=== PATIENT | female | born 1985 | race Caucasian/White ===

== ENCOUNTER 2016-09-07 18:41 | Emergency (ER) | payer OTHER ==
--- NOTE | ~2016-09-07 | CT4 ---
[facility] A Service of [facility] & [facility] RADIOLOGY TEXT RESULTS PATIENT: JOE BARTHOLOMEW LOCATION: CFTX : [birth year] UNIT #: [id number] AGE: [address]: ROBBIE BLANCHARD APRN SEX: F ORDER DR: [id number] [facility] [address] [place], [place] [address] [id number] E MR#: [id number] Acc #: [id number] NAME: JOE BARTHOLOMEW : 1985 SEX: F STUDY DATE/TIME: 09/07/2016 19:35 UNIT: CFTX ROOM: STUDY DESCRIPTION: CT Abd and Pelv Wo Cont Attending Physician: Robbie Blanchard Aprn Ordering Physician: Ed Doctor [id number] [facility] Primary Care Physician: Rudi Thornton M.D. MEDICAL IMAGING REPORT This report is preliminary unless electronic signature is present EXAM CT abdomen and pelvis 09/07/16 INDICATIONS Pelvic pain and dysuria for the last 2 days. History of kidney stones. TECHNIQUE Axial noncontrast images were obtained through the abdomen and pelvis. Multiplanar reformats were obtained. Comparison made with 10/27/2015. This CT exam was performed with one or more of the following radiation dose reduction techniques: automatic exposure control, adjustment of mA and/or kV according to patient size, and iterative reconstruction. FINDINGS Abdomen: Lung bases are clear. The gallbladder is surgically absent. There is no biliary obstruction. There are multiple small bilateral nonobstructing kidney stones. No ureteral stones are seen, and there is no hydronephrosis. Solid organs are otherwise unremarkable. The unopacified GI tract is normal. Pelvis: There are no lower ureteral stones. The bladder is normal. Solid pelvic organs are within normal limits. The appendix is normal. The remainder of the unopacified GI tract is normal as well. There are bilateral L4 pars defects. No malalignment is seen. IMPRESSION 1. No acute findings in the abdomen or pelvis. 2. Bilateral nonobstructing renal stones. No ureteral stones are seen on either side, there is no hydronephrosis. 3. Normal unopacified GI tract including the appendix. [facility] A Service of [facility] & [facility] RADIOLOGY TEXT RESULTS PATIENT: JOE BARTHOLOMEW LOCATION: [facility] : [birth year] UNIT #: [id number] AGE: [address]: ROBBIE BLANCHARD APRN SEX: F ORDER DR: 4. Cholecystectomy. Dictated by... Audi Hogan Jr., M.D. THIS IS AN ELECTRONICALLY VERIFIED REPORT Audi Hogan Jr., M.D. at 09/08/2016 8:00 AM BRADY/ron TD: 09/07/2016 22:22 JOB #: [id number] MEDICAL IMAGING REPORT Page 1 of 1 COPY
[2016-09-07 18:01] LABS: URINE SOURCE CLEAN CATCH
[2016-09-07 18:07] LABS: URINE APPEARANCE CLEAR; URINE BILIRUBIN NEG (NEG); URINE BLOOD TRACE (NEG); URINE COLOR YELLOW; URINE GLUCOSE NEG (NEG); URINE KETONE NEG (NEG); URINE LEUKOCYTE ESTERASE NEG (NEG); URINE NITRATE NEG (NEG); URINE PROTEIN NEG (NEG); URINE SPECIFIC GRAVITY 1.021 (1.003-1.035); URINE UROBILINOGEN 0.2 MG/DL (NEG)
[2016-09-07 18:08] LABS: URINE BACTERIA AUWI NEG (NEGATIVE); URINE SQUAMOUS EPITHELIAL CELL OCC /[HPF]
[2016-09-07 18:11] LABS: CULTURE INDICATED? NO
[~2016-09-07 18:41] MED LIST: ABILIFY; ABILIFY PO; ALBUTEROL 0.5ML INH; ALBUTEROL17 GM; ALBUTEROL17 GM IH; ALBUTEROL17 GM INH; AMOXICILLIN PO; ANAPHYLACTIC KI1 KIT IM; ANTI INFLAMMATORY; ANTIDEPRESSANT PO; ASMANEX; ASTHMANEX IH; AURALGAN EAR DR14 ML OT; BACTRIM DS TABL1 TA1 PO; BENTYL20 MG PO; BENZONATATE PO; BUDEPRION XL150 MG; CALAN80 MG PO; CIPRO PO; COMBIVENT U/D3 M2 INH; CORTISPORI10 ML SUSP AD; CORTISPORIN-TC10 ML OT; DARVOCET-N 1001 TA1 PO; DARVOCET-N 1001 TAB PO; DICLOFENAC PO; DIFLUCAN PO; DOXYCYCLINE MO100 MG PO; DULERA 100 MCG/13 GM INH; ESCITALOPRAM OX20 MG DOB; EXCEDRIN GELTAB1 TA1; FANAPT6 MG PO; FERRO-TIME325 MG PO; FERROUS SULFATE1 TAB PO; FLAGYL PO; FLEXERIL PO; FLEXERIL10 M1 PO; FLEXERIL10 MG PO; FLOMAX0.4 M1 PO; FLONASE 0.05% N16 G1; FLONASE16 GM; FORADIL12 MCG NEB; GABAPENTIN300 M2 PO; GEODAN PO; HEADACHE MEDICATION; HYCODAN60 ML 5MG/ PO; HYDROXYZINE HCL25 M1 PO; IBUPROFEN PO; IBUPROFEN800 MG PO; IMITREX25 MG PO; K-DUR10 MEQ PO; LAMICTAL; LAMICTAL PO; LAMICTAL100 MG PO; LAMICTAL150 MG PO; LAMICTAL25 MG PO; LAMOTRIGINE100 MG PO; LATUDA20 MG PO; LEXAPRO; LEXAPRO PO; LEXAPRO20 MG PO; LIDOCAINE VISCOU1 ML EXT; LORTAB 10-5001 EACH PO; LORTAB 5-325 M1 EACH PO; LORTAB 5/500 TA1 TA1 PO; LORTAB 7.5-5001 TAB PO; LORTAB 7.51 TAB 7.5/ PO; MACROBID 100 M100 MG PO; MAGNESIUM500 MG PO; MEDROL PO; MELATONIN1 MG DOB; MELATONIN1 MG PO; MELOXICAM15 MG PO; MINIPRESS1 MG; MOBIC15 MG PO; MOTRIN400 MG PO; MUCINEX D ER T1 EACH PO; MUCINEX DM ER1 EACH PO; MUCINEX DM1 TAB.SR . PO; MUCINEX1200 MG/BO PO; NAPROSYN500 MG PO; NAPROXEN; NAPROXEN PO; NASONEX17 GM; NEURONTIN; NEXPLANON68 MG SQ; OLANZAPINE20 MG PO; OMEPRAZOLE20 M2 PO; ORUDIS75 M1 DOB; PERCOCET PO; PHENERGAN12.5 MG/SU PR; PHENERGAN25 M1 PO; PHENERGAN25 MG PO; PRAZOSIN HCL2 MG PO; PREDNISONE PO; PRENATAL1 TA1 PO; PRILOSEC20 M1; PRILOSEC20 MG PO; PROMETHAZINE DM PO; PROTONIX; PROTONIX PO; SINGULAIR; SINGULAIR PO; SYMBICORT INH; TESSALON PERLES PO; TIZANIDINE HCL2 M1; TOPAMAX PO; TRAMADOL HCL50 M1 PO; TRIAMCINOLONE A15 G2 TOP; TYLENOL #3 PO; ULTRAM PO; VICODIN 5/500 T1 TAB PO; VICODIN PO; VISTARIL; VISTARIL50 MG PO; VITAMIN B; VOLTAREN PO; VOLTAREN50 MG PO; VOLTAREN75 MG PO; ZITHROMAX PO; ZITHROMAX1 G/PKT PO; ZOFRAN ODT4 MG PO; ZOFRAN ODT4 MG SL; ZOFRAN ODT4 MG/UDTAB PO; ZOFRAN PO; ZOLOFT PO; ZOLOFT100 MG PO; ZOLOFT50 MG PO; ZYRTEC; ZYRTEC PO; ZYRTEC10 M1 PO; ZYRTEC10 M2 PO
[2016-09-07 18:49] LABS: BASOPHIL# 0.1 X10e3 (0-0.3); BASOPHIL% 1.1 % (0-2.5); EOSINOPHIL# 0.2 X10e3 (0-0.7); EOSINOPHIL% 1.9 % (0.0-7.0); HEMATOCRIT 40.5 % (35.0-45.0); HEMOGLOBIN 13.2 gm/dL (12.0-16.0); LYMPHOCYTE# 3.6 X10e3 (1.0-3.5); LYMPHOCYTE% 30.1 % (17.0-45.0); MEAN CELL VOLUME 90.1 FL (83-96); MEAN CORPUSCULAR HEMOGLOBIN 29.3 PG (28-34); MEAN CORPUSCULAR HGB CONC 32.5 g/dL (30-36); MEAN PLATELET VOLUME 8.5 FL (6.5-11.5); MONOCYTE# 0.8 X10e3 (0-1.0); MONOCYTE% 6.8 % (3.0-12.0); NEUTROPHIL# 7.2 X10e3 (1.5-7.1); NEUTROPHIL% 60.1 % (40-75); PLATELET COUNT 272 X10e3 (140-420); RED BLOOD COUNT 4.49 X10e (3.90-5.30); RED CELL DISTRIBUTION WIDTH 14.5 % (11.0-15.5); WHITE BLOOD COUNT 11.9 X10e3 (4.0-10.5)
[2016-09-07 18:53] LABS: DIFF IND NO
[2016-09-07 19:15] LABS: ALBUMIN SERUM 3.7 g/dL (3.5-5.0); BILIRUBIN,TOTAL 0.5 mg/dL (0.2-2.0); CALCIUM SERUM 9.1 mg/dL (8.4-10.2); CREATININE SERUM 0.8 mg/dL (0.6-1.4); GLOM FILT RATE Estimated 99.7 mL/min (>60); POTASSIUM 3.8 mmol/L (3.5-5.1); PROTEIN TOTAL SERUM 7.2 g/dL (6.0-8.3)
[2016-09-10 14:44] LABS: CHLAMYDIA TRACH Not Detected (Not Detected); N GONOR Not Detected (Not Detected)
[2016-09-13] MEDS ORDERED: ZYPREXA (17:47)
[2016-09-13] MEDS ORDERED: PRILOSEC (17:48)
[2016-09-13] MEDS ORDERED: PROZAC10 M1 PO (17:48)
[2016-09-13] MEDS ORDERED: MINIPRESS (17:48)
[2016-09-13] MEDS ORDERED: LAMICTAL (17:48)
[2016-09-13] MEDS ORDERED: NEURONTIN100 MG (17:49)
[2016-09-13] MEDS ORDERED: SINGULAIR (17:49)
[2016-09-13] MEDS ORDERED: ALBUTEROL17 GM (17:49)
[2016-09-13] MEDS ORDERED: CALAN (17:49)
[2016-09-13] MEDS ORDERED: NAPROXEN (17:49)
[2016-09-13] MEDS ORDERED: ZYRTEC (17:49)
== END 2016-09-07 21:02 | disposition home or self-care (01) ==
LOC: CFTX 18:41
PROVIDERS: Nurse Practitioner
DX: N20.0 Calculus of kidney (principal); F41.9 Anxiety disorder, unspecified; F32.9 Major depressive disorder, single episode, unspecified; K21.9 Gastro-esophageal reflux disease without esophagitis; F17.210 Nicotine dependence, cigarettes, uncomplicated; Z90.49 Acquired absence of other specified parts of digestive tract; Z87.442 Personal history of urinary calculi
CPT/HCPCS: 36415; 74176; 80053; 81003; 84703; 85025; 87491; 87591; 87808; 87905; 96372; 99284; J1885

== ENCOUNTER 2016-09-13 18:13 | Emergency (ER) | payer OTHER ==
--- NOTE | ~2016-09-13 | CT2 ---
[facility] A Service of [facility] RADIOLOGY TEXT RESULTS PATIENT: JOE BARTHOLOMEW LOCATION: SED : 86 UNIT #: [id number] AGE: [address]: Evangelista Morales MD SEX: F ORDER DR: [id number] [address] [address] [id number] E MR#: [id number] Acc #: [id number] NAME: JOE BARTHOLOMEW : 1985 SEX: F STUDY DATE/TIME: 09/13/2016 20:28 UNIT: SED ROOM: STUDY DESCRIPTION: CT Abd and Pelv W Cont Attending Physician: Evangelista Morales M.D. Ordering Physician: Alberto Eric M.D. Primary Care Physician: Rudi Thornton M.D. MEDICAL IMAGING REPORT This report is preliminary unless electronic signature is present. EXAM CT abdomen and pelvis with contrast INDICATIONS Left flank pain for the past week. PROCEDURE Contrast-enhanced CT abdomen and pelvis 100 mL Isovue-370. This CT exam was performed with one or more of the following radiation dose reduction techniques: automatic exposure control, adjustment of mA and/or kV according to patient size, and iterative reconstruction. COMPARISON 09/07/2016 FINDINGS Abdomen with contrast: Included lung bases clear. Liver, spleen, adrenal glands, pancreas show no acute abnormality. Previous cholecystectomy. The bowel loops are nondilated. Appendix is normal. There are small nonobstructing calculi in both kidneys. No renal inflammatory change or hydronephrosis. No radiodense ureteral calculus. Pelvis with contrast: No pelvic mass or fluid. No aggressive appearing bone lesion. IMPRESSION 1. Bilateral nonobstructing renal calculi. No CT evidence for renal inflammation. There is no radiodense ureteral calculus or hydronephrosis. 2. Appendix is normal. [facility] A Service of [facility] RADIOLOGY TEXT RESULTS PATIENT: JOE BARTHOLOMEW LOCATION: SED : 86 UNIT #: [id number] AGE: [address]: Evangelista Morales MD SEX: F ORDER DR: Dictated by... Sharath Jain M.D. THIS IS AN ELECTRONICALLY VERIFIED REPORT Sharath Jain M.D. at 09/17/2016 7:05 AM Alejandra TD: 09/14/2016 08:33 JOB #: [id number] MEDICAL IMAGING REPORT Page 1 of 1
[~2016-09-13 18:13] MED LIST changes: +CALAN; +MINIPRESS; +NEURONTIN100 MG; +PRILOSEC; +PROZAC10 M1 PO; +ZYPREXA
[2016-09-13 18:34] LABS: URINE SOURCE CLEAN CATCH
[2016-09-13 18:36] LABS: URINE APPEARANCE CLEAR; URINE BILIRUBIN NEG (NEG); URINE BLOOD NEG (NEG); URINE COLOR YELLOW; URINE GLUCOSE NEG (NORM); URINE KETONE NEG (NEG); URINE LEUKOCYTE ESTERASE NEG (NEG); URINE NITRATE NEG (NEG); URINE PROTEIN NEG (NEG); URINE SPECIFIC GRAVITY 1.015 (1.003-1.035); URINE UROBILINOGEN 0.2 MG/DL (NORM)
[2016-09-13 18:37] LABS: BASOPHIL# 0.2 X10e3 (0-0.3); BASOPHIL% 1.2 % (0-2.5); EOSINOPHIL# 0.2 X10e3 (0-0.7); EOSINOPHIL% 1.2 % (0.0-7.0); HEMATOCRIT 36.9 % (35.0-45.0); HEMOGLOBIN 12.4 gm/dL (12.0-16.0); LYMPHOCYTE# 3.4 X10e3 (1.0-3.5); LYMPHOCYTE% 20.9 % (17.0-45.0); MEAN CELL VOLUME 89.2 FL (83-96); MEAN CORPUSCULAR HEMOGLOBIN 30.1 PG (28-34); MEAN CORPUSCULAR HGB CONC 33.7 g/dL (30-36); MEAN PLATELET VOLUME 8.2 FL (6.5-11.5); MONOCYTE# 0.9 X10e3 (0-1.0); MONOCYTE% 5.3 % (3.0-12.0); NEUTROPHIL# 11.6 X10e3 (1.5-7.1); NEUTROPHIL% 71.4 % (40-75); PLATELET COUNT 267 X10e3 (140-420); RED BLOOD COUNT 4.14 X10e (3.90-5.30); RED CELL DISTRIBUTION WIDTH 14.6 % (11.0-15.5); WHITE BLOOD COUNT 16.2 X10e3 (4.0-10.5)
[2016-09-13 18:38] LABS: MICRO INDICATED? NO
[2016-09-13 18:39] LABS: DIFF IND NO
[2016-09-13 19:01] LABS: ALBUMIN SERUM 3.5 g/dL (3.5-5.0); BILIRUBIN, DIRECT 0.1 mg/dL (0.0-0.2); BILIRUBIN,INDIRECT 0.2 mg/dL (0.0-0.9); BILIRUBIN,TOTAL 0.3 mg/dL (0.2-2.0); BUN/CREATININE RATIO 13.33; CALCIUM SERUM 9.2 mg/dL (8.4-10.2); CREATININE SERUM 1.2 mg/dL (0.6-1.4); POTASSIUM 4.3 mmol/L (3.5-5.1)
== END 2016-09-13 21:07 | disposition home or self-care (01) ==
LOC: SED 18:13
PROVIDERS: Emergency Medicine
DX: A54.03 Gonococcal cervicitis, unspecified (principal); N39.0 Urinary tract infection, site not specified; I10 Essential (primary) hypertension; J45.909 Unspecified asthma, uncomplicated; Z88.8 Allergy status to other drugs, medicaments and biological substances
CPT/HCPCS: 36415; 74177; 80048; 80076; 81003; 82150; 83690; 84703; 85025; 96374; 96375; 99284; J1885; J2405; Q9967

== ENCOUNTER 2016-11-26 16:12 | Emergency (ER) | payer OTHER ==
[2016-11-26 16:51] LABS: URINE SOURCE CLEAN CATCH
[2016-11-26 16:53] LABS: URINE APPEARANCE CLEAR; URINE BILIRUBIN NEG (NEG); URINE BLOOD 3+ (NEG); URINE COLOR YELLOW; URINE GLUCOSE NEG (NORM); URINE KETONE NEG (NEG); URINE LEUKOCYTE ESTERASE NEG (NEG); URINE NITRATE NEG (NEG); URINE PROTEIN NEG (NEG); URINE SPECIFIC GRAVITY <=1.005 (1.003-1.035); URINE UROBILINOGEN 0.2 MG/DL (NORM)
[2016-11-26 17:02] LABS: MICRO INDICATED? YES
[2016-11-26 17:08] LABS: CULTURE INDICATED? NO; URINE BACTERIA NEG (NEG); URINE WBC 0-2 /[HPF] (0-5)
== END 2016-11-26 17:43 | disposition home or self-care (01) ==
LOC: SED 16:12
PROVIDERS: Physician Assistant
DX: R30.0 Dysuria (principal); J45.909 Unspecified asthma, uncomplicated; K21.9 Gastro-esophageal reflux disease without esophagitis; Z90.49 Acquired absence of other specified parts of digestive tract; F17.210 Nicotine dependence, cigarettes, uncomplicated; Z88.8 Allergy status to other drugs, medicaments and biological substances; Z91.018 Allergy to other foods
CPT/HCPCS: 81003; 84703; 99283

== ENCOUNTER 2016-12-02 19:43 | Emergency (ER) | payer OTHER ==
[~2016-12-02] VITALS: Ht 149.9 cm; Wt 94.8 kg
--- NOTE | ~2016-12-02 | CT4 ---
[facility] A Service [facility] RADIOLOGY TEXT RESULTS PATIENT: JOE BARTHOLOMEW LOCATION: SED : 86 UNIT #: [id number] AGE: [address]: JEAN GARCIA SEX: F ORDER DR: [id number] [address] [address] [id number] E MR#: [id number] Acc #: [id number] NAME: JOE BARTHOLOMEW : 1985 SEX: F STUDY DATE/TIME: 12/02/2016 20:52 UNIT: SED ROOM: STUDY DESCRIPTION: CT Abd and Pelv Wo Cont Attending Physician: Jean Garcia Ordering Physician: Jean Garcia Primary Care Physician: Rudi Thornton M.D. MEDICAL IMAGING REPORT This report is preliminary unless electronic signature is present. EXAM CT scan of the abdomen and pelvis without contrast, 12/02/2016 HISTORY Diffuse abdominal pain after urination for [address] was performed through the abdomen and pelvis without oral or intravenous contrast administration as per clinician request. This CT exam was performed with one or more of the following radiation dose reduction techniques: automatic exposure control, adjustment of mA and/or kV according to patient size, and iterative reconstruction. FINDINGS ABDOMEN: Exam is limited by the lack of oral and intravenous contrast. The liver, spleen, pancreas, and adrenal glands are normal. The gallbladder is surgically absent. There are nonobstructing renal stones bilaterally. PELVIS FINDINGS: The gut, mesenteric and karena structures are normal. There is no free fluid in the abdomen or pelvis. The lung bases are normal. Impression 1. The exam is limited by the lack of oral and intravenous contrast. 2. Surgical absence of the gallbladder. 3. Nonobstructing renal stones bilaterally. Dictated by... [facility] A Service [facility] RADIOLOGY TEXT RESULTS PATIENT: JOE BARTHOLOMEW LOCATION: SED : 86 UNIT #: [id number] AGE: [address]: JEAN GARCIA SEX: F ORDER DR: Sang Jansen M.D. THIS IS AN ELECTRONICALLY VERIFIED REPORT Sang Jansen M.D. at 12/03/2016 2:09 PM ROSHNI/darlene TD: 12/03/2016 00:03 JOB #: [id number] MEDICAL IMAGING REPORT Page 1 of 1
[2016-12-02 20:35] LABS: URINE SOURCE CLEAN CATCH
[2016-12-02 20:36] LABS: BASOPHIL# 0.2 X10e3 (0-0.3); BASOPHIL% 1.6 % (0-2.5); EOSINOPHIL# 0.2 X10e3 (0-0.7); EOSINOPHIL% 1.8 % (0.0-7.0); HEMATOCRIT 41.8 % (35.0-45.0); LYMPHOCYTE# 3.3 X10e3 (1.0-3.5); LYMPHOCYTE% 28.2 % (17.0-45.0); MEAN CELL VOLUME 87.8 FL (83-96); MEAN CORPUSCULAR HEMOGLOBIN 29.4 PG (28-34); MEAN CORPUSCULAR HGB CONC 33.5 g/dL (30-36); MONOCYTE# 0.6 X10e3 (0-1.0); MONOCYTE% 5.4 % (3.0-12.0); NEUTROPHIL# 7.3 X10e3 (1.5-7.1); PLATELET COUNT 282 X10e3 (140-420); RED BLOOD COUNT 4.76 X10e (3.90-5.30); RED CELL DISTRIBUTION WIDTH 13.9 % (11.0-15.5); WHITE BLOOD COUNT 11.6 X10e3 (4.0-10.5)
[2016-12-02 20:37] LABS: DIFF IND NO; MICRO INDICATED? YES; URINE APPEARANCE CLEAR; URINE BILIRUBIN NEG (NEG); URINE BLOOD TRACE-INTACT (NEG); URINE COLOR YELLOW; URINE GLUCOSE NEG (NORM); URINE KETONE NEG (NEG); URINE LEUKOCYTE ESTERASE NEG (NEG); URINE NITRATE NEG (NEG); URINE PROTEIN NEG (NEG); URINE SPECIFIC GRAVITY <=1.005 (1.003-1.035); URINE UROBILINOGEN 0.2 MG/DL (NORM)
[2016-12-02 20:48] LABS: CULTURE INDICATED? NO; URINE BACTERIA NEG (NEG); URINE RBC 0-2 /[HPF] (0-2); URINE SQUAMOUS EPITHELIAL CELL FEW /[HPF]; URINE WBC NEG /[HPF] (0-5)
[2016-12-02 20:53] LABS: ALBUMIN SERUM 4.2 g/dL (3.5-5.0); BILIRUBIN,TOTAL 0.6 mg/dL (0.2-2.0); CALCIUM SERUM 9.4 mg/dL (8.4-10.2); GLOM FILT RATE Estimated 76.1 mL/min (>60); POTASSIUM 3.7 mmol/L (3.5-5.1); PROTEIN TOTAL SERUM 8.2 g/dL (6.0-8.3)
[2016-12-05 10:53] LABS: CHLAMYDIA TRACH Not Detected (Not Detected); N GONOR Not Detected (Not Detected)
== END 2016-12-03 00:17 | disposition home or self-care (01) ==
LOC: SED 19:43
PROVIDERS: Nurse Practitioner
DX: N20.0 Calculus of kidney (principal); F41.9 Anxiety disorder, unspecified; F31.9 Bipolar disorder, unspecified; F17.200 Nicotine dependence, unspecified, uncomplicated; Z88.8 Allergy status to other drugs, medicaments and biological substances; Z91.018 Allergy to other foods
CPT/HCPCS: 36415; 74176; 80053; 81003; 84703; 85025; 87210; 87491; 87591; 87808; 87905; 96361; 96374; 96375; 99284; J1885; J2405

== ENCOUNTER 2016-12-11 20:32 | Emergency (ER) | payer OTHER ==
[~2016-12-11] VITALS: Ht 149.9 cm; Wt 94.8 kg
--- NOTE | ~2016-12-11 | CR63 ---
[facility] A Service [facility] RADIOLOGY TEXT RESULTS PATIENT: JOE BARTHOLOMEW LOCATION: SED : 86 UNIT #: [id number] AGE: [address]: Barbara Melendrez SEX: F ORDER DR: [id number] [address] [address] [id number] E MR#: [id number] Acc #: [id number] NAME: JOE BARTHOLOMEW : 1985 SEX: F STUDY DATE/TIME: 12/11/2016 23:39 UNIT: SED ROOM: STUDY DESCRIPTION: CR Chest 2 View Attending Physician: Barbara Melendrez Pa-C Ordering Physician: Physician Non-Staff Primary Care Physician: Rudi Thornton M.D. MEDICAL IMAGING REPORT This report is preliminary unless electronic signature is present. EXAM Chest 2 views HISTORY 30-year-old female in the ED complaining of 1-month history of cough, congestion and fever. TECHNIQUE PA and lateral upright chest series. FINDINGS The exam shows diffuse, predominantly interstitial opacity throughout both lungs, not present on the previous study of 12/02/2015. Heart size is normal. The findings may represent diffuse pneumonitis. Cardiogenic or noncardiogenic pulmonary edema is also possible. There is no airspace consolidation, pneumothorax or pleural effusion. IMPRESSION 1. Vvky-lj-vmktofqs diffuse interstitial opacity may represent pneumonitis as well as pulmonary edema, correlate clinically. 2. Heart size normal. No pleural effusion. Dictated by... Momo Weiss M.D. THIS IS AN ELECTRONICALLY VERIFIED REPORT Momo Weiss M.D. at 12/12/2016 5:59 AM MOSES/[place] TD: 12/12/2016 04:09 [facility] A Service [facility] RADIOLOGY TEXT RESULTS PATIENT: JOE BARTHOLOMEW LOCATION: SED : [birth year] UNIT #: [id number] AGE: [address]: Barbara Melendrez SEX: F ORDER DR: JOB #: [id number] MEDICAL IMAGING REPORT Page 1 of 1
--- NOTE | ~2016-12-11 | CR127 ---
[facility]. [facility] A Service of [facility] & [facility] RADIOLOGY TEXT RESULTS PATIENT: JOE BARTHOLOMEW LOCATION: SED : 86 UNIT #: [id number] AGE: [address]: Barbara Melendrez SEX: F ORDER DR: [id number] [place] [id number] E MR#: [id number] Acc #: [id number] NAME: JOE BARTHOLOMEW : 1985 SEX: F STUDY DATE/TIME: 12/11/2016 21:22 UNIT: SED ROOM: STUDY DESCRIPTION: CR Foot Complete Min 3 View Rt Attending Physician: Barbara Melendrez Pa-C Ordering Physician: Staff Doctor Not On Primary Care Physician: Rudi Thornton M.D. MEDICAL IMAGING REPORT This report is preliminary unless electronic signature is present. EXAM Right foot 12/11 21:22 INDICATIONS Foot pain and swelling after twisting injury and fall today. FINDINGS The tarsal, metatarsal, and phalangeal elements are all anatomically normal in position and alignment. There are no articular defects. No fractures or radiopaque foreign bodies in the soft tissues are apparent. IMPRESSION Normal foot. Dictated by... Audi Hogan Jr., M.D. THIS IS AN ELECTRONICALLY VERIFIED REPORT Audi Hogan Jr., M.D. at 12/12/2016 4:13 PM BRADY/susy TD: 12/12/2016 01:59 JOB #: [id number] MEDICAL IMAGING REPORT Page 1 of 1
--- NOTE | ~2016-12-11 | CR72 ---
[facility] A Service of [facility] & [facility] RADIOLOGY TEXT RESULTS PATIENT: JOE BARTHOLOMEW LOCATION: SED : 86 UNIT #: [id number] AGE: [address]: Barbara Melendrez SEX: F ORDER DR: [id number] [address] [address] [id number] E MR#: [id number] Acc #: [id number] NAME: JOE BARTHOLOMEW : 1985 SEX: F STUDY DATE/TIME: 12/11/2016 22:36 UNIT: SED ROOM: STUDY DESCRIPTION: CR Chest Single View Portable Attending Physician: Barbara Melendrez Pa-C Ordering Physician: Fabio Looney M.D. Primary Care Physician: Rudi Thornton M.D. MEDICAL IMAGING REPORT This report is preliminary unless electronic signature is present. EXAM Chest x-ray 12/11/2016 HISTORY 30-year-old female in the ED complaining of 1-month history of cough, congestion and fever. TECHNIQUE AP portable chest x-ray. FINDINGS The examination is nondiagnostic secondary to radiographic underexposure and patient lordotic positioning, exaggerated by patient body habitus. A repeat study is recommended, preferably an upright PA and lateral examination. Heart size is normal. No visible pneumothorax or pleural effusion. Lungs cannot be assessed on this image. Dictated by... Momo Weiss M.D. THIS IS AN ELECTRONICALLY VERIFIED REPORT Momo Weiss M.D. at 12/12/2016 5:58 AM MOSES/[place] TD: 12/12/2016 03:45 JOB #: [id number] MEDICAL IMAGING REPORT Page 1 of 1
--- NOTE | ~2016-12-11 | CR21 ---
[facility]. [facility] A Service of [facility] & [facility] RADIOLOGY TEXT RESULTS PATIENT: JOE BARTHOLOMEW LOCATION: SED : 86 UNIT #: [id number] AGE: [address]: Barbara Melendrez SEX: F ORDER DR: [id number] [place] [id number] E MR#: [id number] Acc #: [id number] NAME: JOE BARTHOLOMEW : 1985 SEX: F STUDY DATE/TIME: 12/11/2016 21:22 UNIT: SED ROOM: STUDY DESCRIPTION: CR Ankle Min 3 Views Rt Attending Physician: Barbara Melendrez Pa-C Ordering Physician: Staff Doctor Not On Primary Care Physician: Rudi Thornton M.D. MEDICAL IMAGING REPORT This report is preliminary unless electronic signature is present. EXAM Right ankle 12/11 21:22 INDICATIONS Ankle pain and swelling after twisting and falling today. COMPARISON 01/10/2016. FINDINGS AP, lateral, and oblique projections of the ankle show satisfactory integrity of the joint mortise with a smooth articular surface. There is no identifiable fracture, dislocation, or radiopaque foreign body. IMPRESSION Normal ankle. Dictated by... Audi Hogan Jr., M.D. THIS IS AN ELECTRONICALLY VERIFIED REPORT Audi Hogan Jr., M.D. at 12/12/2016 4:13 PM BRADY/susy TD: 12/12/2016 01:57 JOB #: [id number] MEDICAL IMAGING REPORT Page 1 of 1
[2016-12-12 00:57] LABS: BASOPHIL# 0.1 X10e3 (0-0.3); BASOPHIL% 0.3 % (0-2.5); EOSINOPHIL% 0.2 % (0.0-7.0); HEMATOCRIT 39.2 % (35.0-45.0); HEMOGLOBIN 13.2 gm/dL (12.0-16.0); LYMPHOCYTE# 2.3 X10e3 (1.0-3.5); LYMPHOCYTE% 10.9 % (17.0-45.0); MEAN CELL VOLUME 88.2 FL (83-96); MEAN CORPUSCULAR HEMOGLOBIN 29.7 PG (28-34); MEAN CORPUSCULAR HGB CONC 33.6 g/dL (30-36); MEAN PLATELET VOLUME 8.4 FL (6.5-11.5); MONOCYTE# 0.8 X10e3 (0-1.0); MONOCYTE% 3.8 % (3.0-12.0); NEUTROPHIL# 17.8 X10e3 (1.5-7.1); NEUTROPHIL% 84.8 % (40-75); PLATELET COUNT 271 X10e3 (140-420); RED BLOOD COUNT 4.45 X10e (3.90-5.30); RED CELL DISTRIBUTION WIDTH 13.9 % (11.0-15.5)
[2016-12-12 00:59] LABS: DIFF IND YES
[2016-12-12 01:15] LABS: ALBUMIN SERUM 3.7 g/dL (3.5-5.0); BILIRUBIN,TOTAL 0.6 mg/dL (0.2-2.0); BUN/CREATININE RATIO 11.81; CALCIUM SERUM 8.9 mg/dL (8.4-10.2); CREATININE SERUM 1.1 mg/dL (0.6-1.4); GLOM FILT RATE Estimated 67.8 mL/min (>60); POTASSIUM 3.6 mmol/L (3.5-5.1); PROTEIN TOTAL SERUM 7.6 g/dL (6.0-8.3)
[2016-12-12 01:26] LABS: ANISOCYTOSIS SL; PLATELET ESTIMATE NORMAL (NORMAL); POIKILOCYTOSIS SL
== END 2016-12-12 03:35 ==
LOC: SED 20:32
PROVIDERS: Physician Assistant
DX: J18.9 Pneumonia, unspecified organism (principal); F17.200 Nicotine dependence, unspecified, uncomplicated; X50.1XXA Overexertion from prolonged static or awkward postures, initial encounter; Y92.009 Unspecified place in unspecified non-institutional (private) residence as the place of occurrence of the external cause; K21.9 Gastro-esophageal reflux disease without esophagitis; J45.909 Unspecified asthma, uncomplicated; F31.9 Bipolar disorder, unspecified; D64.9 Anemia, unspecified
CPT/HCPCS: 29540; 36415; 71010; 71020; 73610; 73630; 80053; 83605; 84703; 85025; 87040; 96361; 96374; 96375; 99284; J0696; J2930

== ENCOUNTER 2016-12-26 20:59 | Emergency (ER) | payer OTHER ==
[~2016-12-26] VITALS: Ht 149.9 cm; Wt 94.8 kg
--- NOTE | ~2016-12-26 | CR133 ---
[facility] A Service of [facility] RADIOLOGY TEXT RESULTS PATIENT: JOE BARTHOLOMEW LOCATION: SED : 86 UNIT #: [id number] AGE: [address]: Jensen Rajan MD SEX: F ORDER DR: [id number] [place] [id number] E MR#: [id number] Acc #: [id number] NAME: JOE BARTHOLOMEW : 1985 SEX: F STUDY DATE/TIME: 12/26/2016 22:39 UNIT: SED ROOM: STUDY DESCRIPTION: CR Forearm 2 View Rt Attending Physician: Jensen Rajan M.D. Ordering Physician: Jensen Rajan M.D. Primary Care Physician: Rudi Thornton M.D. MEDICAL IMAGING REPORT This report is preliminary unless electronic signature is present. EXAM Two views of the right forearm. DATE 12/26/2016 HISTORY 31-year-old female with proximal right forearm pain for 1 week. No known injury. COMPARISON None. FINDINGS AP and lateral views of the forearm show no evidence of fracture or destructive bone lesion. No periosteal elevation is seen. No radiodense foreign bodies are noted. Adjacent soft tissue structures are normal. IMPRESSION Normal forearm. Dictated by... Beth Kunz M.D. THIS IS AN ELECTRONICALLY VERIFIED REPORT Beth Kunz M.D. at 12/27/2016 2:03 PM [facility]/bri TD: 12/27/2016 08:35 JOB #: [id number] [facility] A Service of [facility] RADIOLOGY TEXT RESULTS PATIENT: JOE BARTHOLOMEW LOCATION: SED : 86 UNIT #: [id number] AGE: [address]: Jensen Rajan MD SEX: F ORDER DR: MEDICAL IMAGING REPORT Page 1 of 1
== END 2016-12-27 | disposition home or self-care (01) ==
LOC: SED 20:59
DX: L03.113 Cellulitis of right upper limb (principal); Z88.8 Allergy status to other drugs, medicaments and biological substances
CPT/HCPCS: 73090; 99283